=== PATIENT | male | born 1965 | race Caucasian/White ===

== ENCOUNTER 2024-01-28 16:03 | Emergency (ER) | payer OTHER, SELFPAY ==
[2024-01-28 16:07] VITALS: BP 142/91
[2024-01-28 17:54] VITALS: BMI 26.8
[2024-01-28 18:03] VITALS: BP 134/93
[2024-01-28 18:25] LABS: % Basophils 0.6 % (0-2); % Eosinophils 1.8 % (0-6); % Immature Granulocytes 0.1 % (0-0.5); % Lymphocytes 21.8 % (20.5-51.1); % Monocytes 7.6 % (1.7-9.3); % Neutrophils 68.1 % (42.2-75.2); Absolute Eosinophils 0.1 10^3/uL (0-0.7); Absolute Lymphocytes 1.5 10^3/uL (1.2-3.4); Absolute Monocytes 0.5 10^3/uL (0.1-0.6); Absolute Neutrophils 4.6 10^3/uL (1.4-6.5); Hematocrit 42.4 % (39.0-52.0); Hemoglobin 13.9 g/dL (13.0-18.0); Mean Corp Hgb Conc. 32.8 g/dL (33.0-37.0); Mean Corpuscular Hgb 30.5 pg (27.0-31.0); Mean Corpuscular Volume 93.2 fL (80.0-94.0); Mean Platelet Volume 9.8 fL (7.4-10.4); Nucleated Red Blood Cells % 0 % (-); Platelet Count 227 10^3/uL (130-400); Red Blood Cell Count 4.55 10^6/uL (4.70-6.10); Red Cell Dist. Width 14.6 % (11.5-14.5); White Blood Cell Count 6.7 10^3/uL (4.8-10.8)
--- NOTE | 2024-01-28 18:27 | ED.GENMED ---
History of Present Illness
General
Chief Complaint: Abdominal Symptoms
Source: patient and family (Daughters)
Exam Limitations: none
Time Seen by Provider: 01/28/24 17:04
Nursing documentation reviewed up to this point in time: agreed with
Travel History
Have you had any contact with someone who has COVID-19?: No
Do you have any symptoms of coronavirus? Fever > 100 degrees, chills, cough, shortness of breath, sore throat, loss of taste or smell, muscle aches, or headache?: No
History of Present Illness
History of Present Illness:
59-year-old male with past medical history of hyperlipidemia presents to the emergency department for evaluation of right pelvic pain. Patient reports that symptoms have been ongoing for the past month but they seem to be worse recently. He
reports a pressure pain that is occasionally more burning in the right pelvic region/inguinal region. He says that it seems to be worse with activity and better with rest. He says that today despite resting/very light activity he has had pain all
day which is unusual and so he came to the emergency room for assessment. He does report that occasionally he will notice a lump in the area of pain. He denies any nausea or vomiting. Denies any constipation. He denies any urinary symptoms.
Denies any fevers or chills. He denies any other complaints. He does have a prior surgical history of appendectomy. He says that he did see his primary doctor for this issue and was prescribed outpatient CT which he has not yet scheduled.
Review of Systems
Review of Systems
All Other Systems: ROS reviewed and negative except as documented in HPI and ROS
Constitutional: Denies fever or chills
Respiratory: Denies trouble breathing
Cardiac: Denies chest pain
ABD/GI: Reports abdominal pain (Right pelvic/inguinal pain); Denies nausea, vomiting, diarrhea or constipated
: Denies dysuria, frequency or flank pain
Musculoskeletal: Denies neck pain or back pain
Neurological: Denies headache
Phy Exam
Physical Exam
Physical Exam:
General: Awake, alert, oriented x3; no acute distress
Head: Normocephalic, atraumatic
Eyes: Conjunctiva normal, sclera anicteric
Throat: Airway intact, handling secretions
Neck: Trachea midline
Lungs: Breathing comfortably not in distress
Heart: Regular rate
Abd: Soft, non distended, nontender; no palpable hernias in area of concern
Neuro: Cranial nerves grossly intact, speech fluid
Skin: no rash
Extremities: Warm well-perfused
Scores
Heart Failure Risk
Heart Failure Risk Score: Not Applicable
Heart Score for Chest Pain Patients
STEMI patient?: Not applicable
Withdrawal Assessment of Alcohol
Withdrawal Assessment Completed?: Not applicable
Course
Orders/Labs/Results
Orders:
Orders
01/28/24 17:25
CT Abd/pelvis W Iv Cont Urgent
Comment: pt is s/p appendectomy
Reason For Exam: right pelvic pain radiating to flank
01/28/24 18:03
Complete Blood Count/With Diff Urgent
Comprehensive Metabolic Panel Urgent
01/28/24 19:08
Urinalysis Reflex To Culture Urgent
Date Specimen was Collected: 01/28/24
Time Specimen was Collected: 19:02
01/28/24 21:36
Urine Culture Urgent
ZAY Source: Urine
Specimen Description:
Obtained by: [facility]
Date Specimen was Collected: 01/28/24
Time Specimen was Collected: 22:18
01/28/24 21:37
CefTRIAXone [Rocephin] 1,000 mg IV NOW STA
Ketorolac [Toradol] 15 mg IV NOW STA
Abnormal Lab Results
01/28/24
18:03
RBC 4.55 L 10^6/uL
(4.70-6.10)
MCHC 32.8 L g/dL
(33.0-37.0)
RDW 14.6 H %
(11.5-14.5)
BUN 23 H mg/dl
(9-20)
01/28/24 18:03
01/28/24 18:03
Vital Signs
Initial and Last Documented VS:
Initial Vital Signs
Temp Pulse Resp BP Pulse Ox
37.1 C 70 16 142/91 98
01/28/24 16:07 01/28/24 16:07 01/28/24 16:07 01/28/24 16:07 01/28/24 16:07
Last Documented Vital Signs
Temp Pulse Resp BP Pulse Ox
37.1 C 70 16 134/93 97
01/28/24 16:07 01/28/24 16:07 01/28/24 16:07 01/28/24 18:03 01/28/24 18:03
MDM/Problems Addressed
Differential Diagnosis Includes:
Hernia, kidney stone, UTI, muscle strain/tear
MDM/Problems Addressed:
59-year-old male presents to the emergency room for evaluation of right pelvic/inguinal pain and occasionally swelling over the past month. Seems to be worse today which prompted ER visit. Vital signs are normal. Exam as above. Will check labs
including a CBC and a CMP. Will send for a CT of the abdomen pelvis. 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
Labs reviewed: CBC and CMP unremarkable. His urinalysis is completely clean but we will send urine culture as on CT of the abdomen pelvis with question of bladder thickening and cystitis. No hernia noted on CT and no other acute pathology. He has
no urinary symptoms but given significant bladder thickening will cover with course of antibiotics and send urine culture. I do suspect that symptoms are more likely musculoskeletal at this point in time. I think he is stable for discharge and can
continue outpatient follow-up with his primary care physician. He feels comfortable with this plan. We spoke about return precautions and all questions answered.
*Radiology
Radiology exam reviewed: radiology read reviewed
*Pulse Oximetry
Patient hypoxic: no
*Critical Care Note
Total Time (30-74mins, 75-104mins- exclusive of procedures): Not Applicable
Data Reviewed
Source: patient
ED Attending Note
-
Portions of this chart may have been created with voice recognition software.� Occasional wrong word or��sound alike� substitutions may have occurred due to the inherent limitations of voice recognition software.
Discharge Plan
Departure
Patient Disposition: Home (Routine Discharge)
Date of Disposition: 01/28/24
Time of Disposition: 22:19
Patient with high blood pressure during this ER visit?: No
Discharge Problem:
Cystitis, Pelvic pain
Instructions: Abdominal Pain
Prescriptions:
New
cephalexin 500 mg tablet
500 mg PO TID 7 Days Qty: 21 0RF
Referrals:
UNKNOWN - PT DOES,NOT KNOW [Family Provider] -
Activity Restrictions/Additional Instructions:
Thank you for visiting the Emergency Department at [facility].
1. Please schedule a follow up appointment as directed. Call first thing tomorrow morning to make an appointment.
2. If indicated, please take your medications as instructed and indicated on discharge paperwork.
3. If any of your symptoms do not improve, or persist, or become more severe within 6-12 hours, please return to the emergency department for further care.
4. Please return to the emergency department if you develop a headache, neck pain/stiffness, fever greater than 100.4F, chest pain, shortness of breath, persistent nausea, vomiting, slurred speech, difficulty walking, numbness/tingling, weakness,
signs of infection or any other symptoms that are worrisome to you.
Please call [phone] if you have any questions.
Interventions
Interventions:
*General Assessment Last Done: 01/28/24 17:53
*ED COVID-19 Vaccine History Last Done: 01/28/24 17:53
QZ-Loneuw-Rywrdgnkjt Assessment Last Done: 01/28/24 17:50
Discharge Date and Time
Print Language: KHMER
[2024-01-28 18:32] LABS: ALT (SGPT) 30 U/L (0-50); AST (SGOT) 29 U/L (17-59); Albumin 4.1 g/dl (3.5-5.0); Alkaline Phosphatase 45 U/L (38-126); Blood Urea Nitrogen 23 mg/dl (9-20); Calcium 9.8 mg/dl (8.4-10.2); Carbon Dioxide 29 mmol/L (22-30); Chloride 104 mmol/L (98-107); Estimated Creatinine Clearance 112 ml/min; Glucose 87 mg/dl (70-99); Potassium 4.3 mmol/L (3.5-5.1); Sodium 138 mmol/L (135-145); Total Bilirubin 0.6 mg/dl (0.2-1.3); Total Protein 6.9 g/dl (6.3-8.2); eGFR > 60.00
[2024-01-28 19:32] LABS: Urine Albumin Negative (Neg - Trace); Urine Bilirubin Negative (Negative); Urine Character Clear (Clear); Urine Color Straw; Urine Glucose Negative (Negative); Urine Ketone Negative (Negative); Urine Leukocyte Negative (Negative); Urine Nitrite Negative (Negative); Urine Occult Blood Negative (Negative); Urine Urobilinogen Negative (Neg - 1+); Urine pH 6.5 (5.0-9.0)
[2024-01-28] MEDS: ROCEPHIN 1000 MG IV (21:57)
[2024-01-28] MEDS: TORADOL 15 MG IV (22:00)
[2024-01-28 22:01] VITALS: BP 142/100
== END 2024-01-28 23:00 | disposition home or self-care (01) ==
LOC: EMR 16:03
PROVIDERS: EMERGENCY PHYSICIAN Emergency Medicine
DX: N30.90 Cystitis, unspecified without hematuria (principal); R10.2 Pelvic and perineal pain; E78.00 Pure hypercholesterolemia, unspecified; Z90.49 Acquired absence of other specified parts of digestive tract
CPT/HCPCS: 99284; 96374; 96375; 74177; 80053; 81003; 85025; 87086; Q9967

== ENCOUNTER 2024-03-04 11:19 | Emergency (ER) | payer OTHER, SELFPAY ==
[2024-03-04] VITALS (7 sets, daily range): BP systolic 116–138; BP diastolic 83–99
[2024-03-04 11:50] LABS: % Basophils 0.9 % (0-2); % Eosinophils 1.7 % (0-6); % Immature Granulocytes 0.2 % (0-0.5); % Lymphocytes 28.6 % (20.5-51.1); % Monocytes 9.2 % (1.7-9.3); % Neutrophils 59.4 % (42.2-75.2); Absolute Eosinophils 0.1 10^3/uL (0-0.7); Absolute Lymphocytes 1.3 10^3/uL (1.2-3.4); Absolute Monocytes 0.4 10^3/uL (0.1-0.6); Absolute Neutrophils 2.8 10^3/uL (1.4-6.5); Hemoglobin 13.8 g/dL (13.0-18.0); Mean Corp Hgb Conc. 34.5 g/dL (33.0-37.0); Mean Corpuscular Hgb 30.9 pg (27.0-31.0); Mean Corpuscular Volume 89.5 fL (80.0-94.0); Mean Platelet Volume 9.4 fL (7.4-10.4); Nucleated Red Blood Cells % 0 % (-); Platelet Count 227 10^3/uL (130-400); Red Blood Cell Count 4.47 10^6/uL (4.70-6.10); White Blood Cell Count 4.7 10^3/uL (4.8-10.8)
[2024-03-04 12:02] LABS: ALT (SGPT) 22 U/L (0-50); AST (SGOT) 26 U/L (17-59); Albumin 4.5 g/dl (3.5-5.0); Alkaline Phosphatase 42 U/L (38-126); Blood Urea Nitrogen 19 mg/dl (9-20); Calcium 9.7 mg/dl (8.4-10.2); Carbon Dioxide 28 mmol/L (22-30); Chloride 105 mmol/L (98-107); Glucose 97 mg/dl (70-99); Potassium 4.3 mmol/L (3.5-5.1); Sodium 140 mmol/L (135-145); Total Bilirubin 1.5 mg/dl (0.2-1.3); Total Protein 7.4 g/dl (6.3-8.2); eGFR > 60.00
[2024-03-04 12:13] LABS: Troponin I < 0.012 ng/ml
--- NOTE | 2024-03-04 13:24 | ED.GENMED ---
History of Present Illness
General
Chief Complaint: Chest Pain
Source: patient
Exam Limitations: none
Time Seen by Provider: 03/04/24 13:06
Nursing documentation reviewed up to this point in time: agreed with
History of Present Illness
History of Present Illness:
Patient is a 59-year-old male who presents to the ER for evaluation of chest pain. Patient reports he was doing deep breathing exercises at 6:45 am outside when he started to feel pressure in the left side of his chest when he was taking a deep
breath. He has also noticed since then that if he changes positions he gets the same pressure. This has been intermittent and worse with taking a deep breath or moving since 6:45 AM. He denies any associated shortness of breath. Denies recent
cough chills fever. He denies any recent injury. He denies any associated shortness of breath with this. No prior history of DVT PE. No family history client is aware. Denies any extremity swelling. No other risk for DVT. He does report he is
going through a lot of stress currently with divorce. He has no cardiac history. Is not smoke. His father did however at 72 from heart disease.
He does not smoke.
Review of Systems
Review of Systems
Allergies reviewed?: Yes
All Other Systems: ROS reviewed and negative except as documented in HPI and ROS
Constitutional: Reports no symptoms
Respiratory: Reports no symptoms; Denies trouble breathing
Cardiac: Reports chest pain
ABD/GI: Reports no symptoms
Musculoskeletal: Reports no symptoms
Skin: Reports no symptoms
Neurological: Reports no symptoms
Psychiatric: Reports no symptoms
Phy Exam
General Physical Exam
General Presentation: no apparent distress
General age: appears stated age
General Skin: warm and dry
General Habitus: normal
General Mental: alert
General Hydration: appears well hydrated
Cardiovascular Exam
Cardiovascular Exam: regular rate/rhythm, no murmur and normal peripheral pulses
Pulmonary Exam
Pulmonary Exam: lungs clear and no respiratory distress
Neurological Exam
Neurological Exam: alert and oriented x3
Musculoskeletal Exam
Musculoskeletal Exam: full ROM
Skin Exam
Skin Exam: normal color and warm/dry
Psychiatric Exam
Psychiatric Exam: normal mood/affect
Scores
Heart Score for Chest Pain Patients
STEMI patient?: Not applicable
Course
Orders/Labs/Results
Orders:
Orders
03/04/24 11:31
ECG [Electrocardiogram (*1)] Urgent
Reason for Study: Chest Pain
EKG- Treatment ONCE
03/04/24 11:42
Complete Blood Count/With Diff Urgent
Comprehensive Metabolic Panel Urgent
Troponin I Urgent
03/04/24 13:25
IV Insert/Care/Rem.- Treatment PRN
03/04/24 13:26
Ketorolac [Toradol] 15 mg IV NOW STA
03/04/24 13:42
DDimer [D-Dimer] Urgent
03/04/24 14:19
Chest [CR Chest - 2 Views ] Urgent
Comment:
Reason For Exam: cp
03/04/24 14:31
Electrocardiogram (*1) Stat
Reason for Study: Other
Other Reason for Exam: chest pain
EKG- Treatment ONCE
03/04/24 15:25
Troponin I Urgent
Abnormal Lab Results
03/04/24
11:42
WBC 4.7 L 10^3/uL
(4.8-10.8)
RBC 4.47 L 10^6/uL
(4.70-6.10)
Total Bilirubin 1.5 H mg/dl
(0.2-1.3)
03/04/24 11:42
03/04/24 11:42
Vital Signs
Initial and Last Documented VS:
Initial Vital Signs
Temp Pulse Resp BP Pulse Ox
98.6 F 62 18 125/83 97
03/04/24 11:36 03/04/24 11:36 03/04/24 11:36 03/04/24 11:36 03/04/24 11:36
Last Documented Vital Signs
Temp Pulse Resp BP Pulse Ox
98.6 F 62 18 125/83 99
03/04/24 11:36 03/04/24 11:36 03/04/24 11:36 03/04/24 11:36 03/04/24 13:28
MDM/Problems Addressed
Differential Diagnosis Includes:
not limited to: [place] CAD musculoskeletal chest pain, pleurisy, PE
MDM/Problems Addressed:
Patient is a 59-year-old male who presented to the ER for evaluation of chest discomfort that he noticed this morning while doing deep breathing exercises. He describes this pain with deep breath also sore with position change but denies any actual
injury. He has no acute distress denies any actual shortness of breath he is nontachycardic nontachypneic normal D-dimer. Patient was monitored here and had 2 negative cardiac no acute findings on EKG patient received Toradol here feeling slight
improvement possible muscular pain however will DC with chest pain hotline follow-up.
*Radiology
Radiology exam reviewed: radiology read reviewed
*Pulse Oximetry
Patient hypoxic: no
*EKG
Interpreted by ED Provider?: Yes
Heart Rate: 64
Rate: normal
Rhythm: sinus
Ischemia: no ischemia
*Critical Care Note
Total Time (30-74mins, 75-104mins- exclusive of procedures): Not Applicable
ED Attending Note
-
Portions of this chart may have been created with voice recognition software.� Occasional wrong word or��sound alike� substitutions may have occurred due to the inherent limitations of voice recognition software.
Discharge Plan
Departure
Patient Disposition: Home (Routine Discharge)
Date of Disposition: 03/04/24
Time of Disposition: 16:20
Patient with high blood pressure during this ER visit?: No
Condition: Fair
Covid-19: Not Applicable
Discharge Problem:
Chest pain
Instructions: Chest Pain DCA Follow Up
Prescriptions:
No Action
cephalexin 500 mg tablet
500 mg PO TID 7 Days Qty: 21 0RF
Referrals:
Jaime Alfonso DO [Active] -
Emelyn Fuller CRNP [Family Provider] -
Activity Restrictions/Additional Instructions:
As discussed you were placed on the chest pain hotline which means should receive a phone call from cardiology office in the next several days to schedule appointment if you do not receive a call please contact the office to schedule appointment
soon as possible. You may take ibuprofen for discomfort return if any worsening of symptoms.
Interventions
Interventions:
*Risk Screen - Suicide Last Done: 03/04/24 13:28
*General Assessment Last Done: 03/04/24 13:28
*Neglect/Abuse Screening Last Done: 03/04/24 13:28
ED- Fall Risk Assessment Last Done: 03/04/24 13:28
*ED COVID-19 Vaccine History Last Done: 03/04/24 13:28
ED- Cardiac Assessment Last Done: 03/04/24 13:28
Discharge Date and Time
Print Language: MARTINIQUAIS
[2024-03-04] MEDS: TORADOL 15 MG IV (13:46)
[2024-03-04 14:06] LABS: D-Dimer 0.28 ug/mlFEU (0.00-0.50)
[2024-03-04 16:04] LABS: Troponin I < 0.012 ng/ml
--- NOTE | 2024-03-04 17:00 | EDRN ---
Reviewed discharge instructions with patient. Verbalized understanding. Ambulated with steady gait to the lobby.
== END 2024-03-04 17:02 | disposition home or self-care (01) ==
LOC: EMR 11:19
PROVIDERS: Emergency Medicine; Nurse Practitioner; EMERGENCY PHYSICIAN Emergency Medicine; FAMILY PHYSICIAN Nurse Practitioner Family
DX: R07.89 Other chest pain (principal)
CPT/HCPCS: 99285; 96374; 71046; 80053; 84484; 85025; 85379; 93005

== ENCOUNTER 2024-03-22 06:37 | Emergency (ER) | payer OTHER, SELFPAY ==
[2024-03-22 06:46] VITALS: BP 121/84; BMI 25.7
[2024-03-22 07:00] VITALS: BP 124/84
[2024-03-22 07:01] LABS: % Basophils 0.5 % (0-2); % Eosinophils 1.4 % (0-6); % Immature Granulocytes 0.4 % (0-0.5); % Lymphocytes 15.2 % (20.5-51.1); % Monocytes 10.4 % (1.7-9.3); % Neutrophils 72.1 % (42.2-75.2); Absolute Eosinophils 0.1 10^3/uL (0-0.7); Absolute Lymphocytes 1.1 10^3/uL (1.2-3.4); Absolute Monocytes 0.8 10^3/uL (0.1-0.6); Absolute Neutrophils 5.3 10^3/uL (1.4-6.5); Hematocrit 39.2 % (39.0-52.0); Hemoglobin 13.4 g/dL (13.0-18.0); Mean Corp Hgb Conc. 34.2 g/dL (33.0-37.0); Mean Corpuscular Hgb 30.6 pg (27.0-31.0); Mean Corpuscular Volume 89.5 fL (80.0-94.0); Mean Platelet Volume 9.7 fL (7.4-10.4); Nucleated Red Blood Cells % 0 % (-); Platelet Count 222 10^3/uL (130-400); Red Blood Cell Count 4.38 10^6/uL (4.70-6.10); Red Cell Dist. Width 14.4 % (11.5-14.5); White Blood Cell Count 7.4 10^3/uL (4.8-10.8)
[2024-03-22 07:15] LABS: ALT (SGPT) 18 U/L (0-50); AST (SGOT) 25 U/L (17-59); Albumin 4.2 g/dl (3.5-5.0); Alkaline Phosphatase 50 U/L (38-126); Blood Urea Nitrogen 20 mg/dl (9-20); Calcium 9.3 mg/dl (8.4-10.2); Carbon Dioxide 25 mmol/L (22-30); Chloride 107 mmol/L (98-107); Estimated Creatinine Clearance 112 ml/min; Glucose 99 mg/dl (70-99); Potassium 4.1 mmol/L (3.5-5.1); Sodium 140 mmol/L (135-145); Total Protein 6.8 g/dl (6.3-8.2); eGFR > 60.00
--- NOTE | 2024-03-22 07:22 | ED.GENMED ---
History of Present Illness
General
Chief Complaint: Chest Problem
Source: patient
Time Seen by Provider: 03/22/24 06:52
History of Present Illness
History of Present Illness:
59yoM with no significant past medical history presenting for evaluation of chest pain. Patient reports having left sided chest pain since yesterday. The pain was mild yesterday. He tried to roll over in bed this morning around 5:30am when he
experienced sharp left sided chest pain that was worse. He states he was scared to move because he was afraid that he was going to have a heart attack. His cat walked across his chest which also worsened his pain. He rates his pain as a 7/10 at its
worst. Pain is worse with deep breathing, movement, and sneezing. He denies any exertional pain. He is otherwise asymptomatic and denies any diaphoresis, dizziness, syncope, nausea, vomiting, abdominal pain, cough, leg swelling. He denies any
history of heart disease. He was seen in the ED on 03/04/24 for similar symptoms and had a normal workup at that time. His PCP ordered a calcium score test which he has not scheduled yet.
Phy Exam
General Physical Exam
General Presentation: well appearing and no apparent distress
General age: appears stated age
General Skin: warm and dry
General Habitus: normal
General Mental: alert
General Hydration: appears well hydrated
Cardiovascular Exam
Cardiovascular Exam: regular rate/rhythm, no edema and no murmur
Pulmonary Exam
Pulmonary Exam: lungs clear, no respiratory distress, chest non tender, no crackles and no wheezing
Musculoskeletal Exam
Musculoskeletal Exam: no edema
Skin Exam
Skin Exam: normal color and warm/dry
Psychiatric Exam
Psychiatric Exam: normal mood/affect
Course
Orders/Labs/Results
Orders:
Orders
03/22/24 06:40
Electrocardiogram (*1) Urgent
Reason for Study: Chest Pain
03/22/24 06:41
Cardiac Monitoring- Treatment ONCE
EKG- Treatment ONCE
03/22/24 06:51
CMP [Comprehensive Metabolic Panel] Urgent
Complete Blood Count/With Diff Urgent
Troponin I Urgent
03/22/24 07:22
CR Chest - 2 Views Urgent
Comment:
Reason For Exam: CP
03/22/24 07:56
EKG- Treatment ONCE
03/22/24 09:00
Electrocardiogram (*1) Urgent
Reason for Study: Chest Pain
03/22/24 09:04
D-Dimer Urgent
Troponin I Urgent
03/22/24 09:40
CT Chest Pe Study Urgent
Comment:
Reason For Exam: Pleuritic chest pain, elevated D-dimer
03/22/24 11:21
Doxycycline [Vibramycin] 100 mg PO NOW STA
Abnormal Lab Results
03/22/2424
06:51 09:04
RBC 4.38 L 10^6/uL
(4.70-6.10)
Absolute Lymphs (auto) 1.1 L 10^3/uL
(1.2-3.4)
Absolute Monos (auto) 0.8 H 10^3/uL
(0.1-0.6)
Lymphocytes % 15.2 L %
(20.5-51.1)
Monocytes % 10.4 H %
(1.7-9.3)
D-Dimer 0.59 H ug/mlFEU
(0.00-0.50)
03/22/24 06:51
03/22/24 06:51
Vital Signs
Initial and Last Documented VS:
Initial Vital Signs
Pulse
72
03/22/24 06:45
Last Documented Vital Signs
Temp Pulse Resp BP Pulse Ox
98.2 F 67 18 115/89 97
03/22/24 06:46 03/22/24 11:40 03/22/24 11:40 03/22/24 11:40 03/22/24 11:40
MDM/Problems Addressed
Differential Diagnosis Includes:
59yoM here with sharp L sided chest pain x 1 day. Worse with movement, breathing, and sneezing. No exertional pain or diaphoresis. Seen in ED last month for similar complaints. He is afebrile and hemodynamically stable. He is well appearing in no
distress. Exam is reassuring. Differential diagnosis includes but is not limited to: musculoskeletal, pneumothorax, pneumonia, PE, ACS
Initial ED plan: Check cardiac labs, D-dimer, EKG, and CXR.
*EKG
EKG Intrepretation Date: 03/22/24
EKG Intrepretation Time: 07:27
Heart Rate: 77
Rate: normal
Rhythm: sinus
Hulen: normal axis
Interval: normal interval
QRS Pattern: normal QRS
Ischemia: no ischemia
*Critical Care Note
Total Time (30-74mins, 75-104mins- exclusive of procedures): Not Applicable
Update Note
Update Note:
EKG shows NSR without ischemic changes and troponin is normal. D-dimer elevated and CTA chest subsequently added. CT is negative for pulmonary embolism although imaging does reveal mild left lower lobe pneumonia with minimal left pleural effusion
which is the likely cause of patient's symptoms. Delta troponin/EKG unchanged. HEART score is 1 for age. No indication for admission. He was started on a course of doxycycline. Advised close f/u with PCP and ED return precautions discussed. Patient
discharged in stable condition.
ED Attending Note
-
Portions of this chart may have been created with voice recognition software.� Occasional wrong word or��sound alike� substitutions may have occurred due to the inherent limitations of voice recognition software.
Discharge Plan
Departure
Patient Disposition: Home (Routine Discharge)
Date of Disposition: 03/22/24
Time of Disposition: 11:23
Patient with high blood pressure during this ER visit?: No
Discharge Problem:
Left lower lobe pneumonia, Pleural effusion, left
Instructions: Community-Acquired Pneumonia, Adult (DC)
Prescriptions:
New
doxycycline hyclate 100 mg capsule
100 mg PO BID Qty: 14 0RF
No Action
cephalexin 500 mg tablet
500 mg PO TID 7 Days Qty: 21 0RF
Referrals:
Emelyn Fuller CRNP [Family Provider] -
Stand Alone Forms: Return to Work
Activity Restrictions/Additional Instructions:
Take antibiotics as prescribed. Drink plenty of fluids and rest. Take Tylenol and ibuprofen as needed for pain.
Please follow-up with your family doctor in 2-3 days. Return to the ER with any worsening symptoms.
Interventions
Interventions:
*Risk Screen - Suicide Last Done: 03/22/24 06:46
*General Assessment Last Done: 03/22/24 06:46
*Neglect/Abuse Screening Last Done: 03/22/24 06:46
ED- Fall Risk Assessment Last Done: 03/22/24 06:50
*ED COVID-19 Vaccine History Last Done: 03/22/24 06:46
*Nursing Disposition Last Done: 03/22/24 11:42
ED- Cardiac Assessment Last Done: 03/22/24 07:17
ED- Pulmonary Assessment Last Done: 03/22/24 07:17
Discharge Date and Time
Discharge Date/Time: 03/22/24 11:43
Print Language: SLOVENIAN
[2024-03-22 07:25] LABS: Troponin I < 0.012 ng/ml
[2024-03-22 08:00] VITALS: BP 133/82
[2024-03-22 09:02] VITALS: BP 123/83
[2024-03-22 09:25] LABS: D-Dimer 0.59 ug/mlFEU (0.00-0.50)
[2024-03-22 09:33] LABS: Troponin I < 0.012 ng/ml
[2024-03-22] MEDS: VIBRAMYCIN 100 MG PO (11:34)
[2024-03-22 11:40] VITALS: BP 115/89
== END 2024-03-22 11:43 | disposition home or self-care (01) ==
LOC: EMR 06:37
PROVIDERS: Physician Assistant; EMERGENCY PHYSICIAN Emergency Medicine; FAMILY PHYSICIAN Nurse Practitioner Family
DX: J18.9 Pneumonia, unspecified organism (principal); J90 Pleural effusion, not elsewhere classified
CPT/HCPCS: 99285; 71046; 71275; 80053; 84484; 85025; 85379; 93005; Q9967

== ENCOUNTER → 2024-04-17 19:20 | Outpatient (REF) | payer OTHER, SELFPAY | LOC: MRI 19:20 | PROVIDERS: ATTENDING PHYSICIAN Surgery; FAMILY PHYSICIAN Nurse Practitioner Family | DX: R10.31 Right lower quadrant pain (principal); K86.2 Cyst of pancreas | CPT/HCPCS: 72197; A9575 ==

== ENCOUNTER → 2024-04-18 19:41 | Outpatient (REF) | payer OTHER, SELFPAY | LOC: MRI 3T 19:41 | PROVIDERS: ATTENDING PHYSICIAN Surgery; FAMILY PHYSICIAN Nurse Practitioner Family | DX: K86.2 Cyst of pancreas (principal); R10.31 Right lower quadrant pain | CPT/HCPCS: 74183; A9575 ==

== ENCOUNTER 2024-10-30 06:25 | Day surgery (SDC) | payer OTHER, SELFPAY ==
[2024-10-14 09:01] LABS: Hematocrit 44.6 % (39.0-52.0); Hemoglobin 14.7 g/dL (13.0-18.0); Mean Corpuscular Hgb 30.1 pg (27.0-31.0); Mean Corpuscular Volume 91.4 fL (80.0-94.0); Mean Platelet Volume 9.8 fL (7.4-10.4); Platelet Count 252 10^3/uL (130-400); Red Blood Cell Count 4.88 10^6/uL (4.70-6.10); White Blood Cell Count 4.7 10^3/uL (4.8-10.8)
[2024-10-14 09:28] LABS: Blood Urea Nitrogen 25 mg/dl (9-20); Calcium 9.8 mg/dl (8.4-10.2); Carbon Dioxide 27 mmol/L (22-30); Chloride 105 mmol/L (98-107); Glucose 104 mg/dl (70-99); Potassium 4.3 mmol/L (3.5-5.1); Sodium 141 mmol/L (135-145); eGFR > 60.00
[2024-10-14 13:09] VITALS: BMI 25.4
[2024-10-30] VITALS (7 sets, daily range): BP systolic 117–130; BP diastolic 80–86; BMI 25.4
[2024-10-30] MEDS: TYLENOL 1000 MG PO (06:27)
[2024-10-30] MEDS: NORMOSOL-R/PLASMALYTE-A 1000 IV (06:32)
== END 2024-10-30 11:25 | disposition home or self-care (01) ==
LOC: SDS 06:25
PROVIDERS: ATTENDING PHYSICIAN Surgery; FAMILY PHYSICIAN Nurse Practitioner Family
PROC: 0YU54JZ Supplement Right Inguinal Region with Synthetic Substitute, Percutaneous Endoscopic Approach (ICD-10-PCS; 2024-10-30)
PROC: 8E0W4CZ Robotic Assisted Procedure of Trunk Region, Percutaneous Endoscopic Approach (ICD-10-PCS; 2024-10-30)
PROC: 0WQF0ZZ Repair Abdominal Wall, Open Approach (ICD-10-PCS; 2024-10-30)
DX: K40.90 Unilateral inguinal hernia, without obstruction or gangrene, not specified as recurrent (principal); K42.9 Umbilical hernia without obstruction or gangrene
CPT/HCPCS: 49650; 49591; 36415; 80048; 85027; 93005; C1781